=== PATIENT | female | born 1960 | race Hispanic/Latino ===

== ENCOUNTER 2019-11-07 06:03 | Day surgery (SDC) | payer MEDICAID ==
[~2019-11-07 06:03] MED LIST: BACTERIOSTATIC SODIUM CHLORIDE 0.9% 30 ML VIAL INFILTRATI ONE; LACTATED RINGERS 1,000 ML IV SCH; MIDAZOLAM 2 MG/2 ML INJ IV NR
--- NOTE | 2019-11-07 07:17 | Anesthesia Consultation ---
Anesthesia Consult and Med Hx Date of service: 11/07/19 - Airway Anesthetic Teeth Evaluation: Poor, Chipped ROM Head & Neck: Adequate Mental/Hyoid Distance: Adequate Mallampati Class: Class II Intubation Access Assessment: Good - Pulmonary Exam CTA: Yes - Cardiac Exam Cardiac Exam: RRR - Pre-Operative Health Status ASA Pre-Surgery Classification: ASA3 Proposed Anesthetic Plan: General - Pulmonary Hx Smoking: Yes (1PPD) Hx Sleep Apnea: Yes - Cardiovascular System Hx Hypertension: Yes (SINCE HER 30'S) - Central Nervous System CVA: Yes (2004; NO DEFICITS) Hx Psychiatric Problems: Yes - Gastrointestinal Hx Gastroesophageal Reflux Disease: Yes (controlled with med.) - Endocrine Hx Non-Insulin Dependent Diabetes: Yes - Other Systems Hx Alcohol Use: No Hx Substance Use: Yes (MARIJUANA) Hx Cancer: Yes (SKIN BASAL AND SQUAMOUS CARCINOMA)
--- NOTE | 2019-11-07 07:18 | Anesthesia Day of Surgery ---
Anesthesia Day of Surgery - Day of Surgery Patient Examined: Yes Patient H&P Reviewed: Yes Patient is NPO: Yes
[2019-11-07] MEDS ORDERED: LIDOCAINE 2% UROJECT 10 ML JELLY ONE (07:23)
[2019-11-07] MEDS ORDERED: ceFAZolin/STERILE WATER 2 GM/20 ML SYRINGE IV NR (07:31)
[2019-11-07] MEDS ORDERED: propofoL 200 MG/20 ML VIAL IV ONE (08:09)
[2019-11-07] MEDS ORDERED: fentaNYL 100 MCG/2 ML INJ ONE (08:19)
[2019-11-07] MEDS ORDERED: KETOROLAC 30 MG/1 ML INJ ONE (08:35)
[2019-11-07] MEDS ORDERED: ONDANSETRON 4 MG/2 ML INJ ONE (08:35)
--- NOTE | 2019-11-07 08:38 | Post Operative Note ---
Date of procedure: 11/07/19 Pre-op diagnosis: hematuria Post-op diagnosis: same Findings: neg cysto Procedure: cysto bx rpgs Anesthesia: GETA Surgeon: KAREN MARIN Estimated blood loss: none Pathology: none Specimen disposition: to lab (bladder) Condition: stable Disposition: PACU
--- NOTE | 2019-11-07 08:39 | Discharge Summary ---
Short Stay Discharge Plan Activity: other (no straining ) Weight Bearing Status: Full Weight Bearing Diet: regular, low fat, low cholesterol Special Instructions: other (inc fluids ) Follow up with: PALLAVI DE LA FUENTE MD [Primary Care Provider] - 7 Days KAREN MARIN MD [Staff Physician] - 14 Days
--- NOTE | 2019-11-07 08:51 | Operative Report ---
PREOPERATIVE DIAGNOSIS: Hematuria. POSTOPERATIVE DIAGNOSIS: Hematuria. PROCEDURE: Cystoscopy, retrograde biopsy. SURGEON: Dr. Henao. ANESTHESIA: General. FINDINGS: This is a woman with hematuria. She now presents for cystoscopy. All risks and implications discussed. DESCRIPTION OF PROCEDURE: The patient was brought to the operating room and placed on the operating table. Following induction of anesthesia, she was placed in lithotomy position, prepped and draped in usual sterile fashion. Exam was unremarkable. Bimanual cystoscopy showed no lesions. Biopsy was done. Retrograde showed delicate collecting system with no persistent filling defect. The patient tolerated the procedure well and brought to recovery room in stable condition for a CT scan, which she did not have. She was supposed to go for, but she will have it before discharge. JOB# [id number] JIM/ARLINE
[2019-11-07] MEDS: fentaNYL 100 MCG/2 ML INJ IV PRN ×2 (09:35→09:45)
[2019-11-07] MEDS ORDERED: HYDROmorphone 1 MG/1 ML INJ ONE (09:52)
[2019-11-07] MEDS: HYDROmorphone 1 MG/1 ML INJ IV PRN ×2 (09:52→10:00)
[2019-11-07] MEDS ORDERED: GLYCOPYRROLATE 0.4 MG/2 ML INJ ONE (10:30)
[2019-11-07] MEDS ORDERED: hydrALAZINE 20 MG/1 ML INJ IV PRN (10:30)
[2019-11-07] MEDS ORDERED: HYDROcodone/ACETAMINOPHEN 5-325 MG TAB PO PRN (11:00)
[2019-11-07 11:27] VITALS: BP 142/79
--- NOTE | 2019-11-07 11:38 | Cat Scan Report ---
CT ABDOMEN AND PELVIS WITHOUT CONTRAST INDICATION / CLINICAL INFORMATION: hematuria. TECHNIQUE: Axial CT images were obtained through the abdomen and pelvis without IV contrast. All CT scans at [facility] are performed using CT dose reduction for ALARA by means of automated exposure control. COMPARISON: None available. FINDINGS: LOWER CHEST: Bibasilar atelectasis and scarring. LIVER: No significant abnormality. GALLBLADDER: No significant abnormality. BILE DUCTS: No significant abnormality. PANCREAS: No significant abnormality. SPLEEN: No significant abnormality. ADRENALS: Bilateral hypoattenuating adrenal nodules measuring 2.5 cm on the left and 1.8 cm on the ri ght. RIGHT KIDNEY / URETER: No significant abnormality. No evidence of nephroureterolithiasis or obstructi ve uropathy. LEFT KIDNEY / URETER: No significant abnormality. No evidence of nephroureterolithiasis or obstructiv e uropathy. STOMACH / SMALL BOWEL: No significant abnormality. COLON: Sigmoid diverticulosis without evidence of inflammation. APPENDIX: No significant abnormality. PERITONEUM: No free fluid. No free air. No fluid collection. LYMPH NODES: No significant adenopathy. AORTA / ARTERIES: Mild atherosclerotic calcification without acute abnormality. IVC / VEINS: No significant abnormality. URINARY BLADDER: Contrast is seen within the bladder along with a single droplet of gas. These findin gs are likely related to recent intervention. REPRODUCTIVE ORGANS: No significant abnormality. ADDITIONAL FINDINGS: None. SKELETAL SYSTEM: No significant abnormality. IMPRESSION: 1. No acute abdominopelvic abnormality. Specifically, no evidence of nephroureterolithiasis or obstru ctive uropathy. 2. Contrast and gas are seen within the urinary bladder lumen from recent urologic intervention. 3. Bilateral hypoattenuating adrenal nodules likely reflect benign adenomas. If there is clinical con cern, multiphase adrenal protocol CT could be performed. 4. Uncomplicated sigmoid diverticulosis. Signer Name: Archie Dickerson MD Signed: 11/07/2019 11:33 AM Workstation Name: [id number]
--- NOTE | 2019-11-07 13:34 | Post Anesthesia Evaluation ---
- Post Anesthesia Evaluation Patient Participated: Yes Airway Patent: Yes Stable Respiratory Function: Yes Nausea/Vomiting: No Temp > 96.8F: Yes Pain Manageable: Yes Adequeate Hydration: Yes Anesthesia Complications: No
--- NOTE | 2019-11-07 14:59 | Fluoroscopy Report ---
FL retrograde urography INDICATION / CLINICAL INFORMATION: HEMATURIA. COMPARISON: None available. FINDINGS: Bilateral retrograde examinations performed Fluoroscopy time: 25 seconds. Fluoroscopic images: 6. Signer Name: Michoacano Nunez MD Signed: 11/07/2019 2:55 PM Workstation Name: [id number]
== END 2019-11-07 06:04 | disposition home or self-care (01) ==
LOC: OR 06:03
PROVIDERS: ATTEND Urology
DX: R31.9 Hematuria, unspecified (principal); N32.89 Other specified disorders of bladder; E11.42 Type 2 diabetes mellitus with diabetic polyneuropathy; G62.9 Polyneuropathy, unspecified; E78.00 Pure hypercholesterolemia, unspecified; I10 Essential (primary) hypertension; G47.30 Sleep apnea, unspecified; K21.9 Gastro-esophageal reflux disease without esophagitis; F32.9 Major depressive disorder, single episode, unspecified; F17.210 Nicotine dependence, cigarettes, uncomplicated; Z85.828 Personal history of other malignant neoplasm of skin; Z80.3 Family history of malignant neoplasm of breast; Z80.8 Family history of malignant neoplasm of other organs or systems; Z79.899 Other long term (current) drug therapy; Z90.710 Acquired absence of both cervix and uterus; Z98.890 Other specified postprocedural states; Z80.59 Family history of malignant neoplasm of other urinary tract organ; Z86.73 Personal history of transient ischemic attack (TIA), and cerebral infarction without residual deficits
CPT/HCPCS: 36415; 52204; 74176; 74420; 82962; 84132; 88112; 88305; C1769; J0360; J0690; J1170; J1885; J2250; J2405; J2704; J3010; J7120; Q9967